=== PATIENT | male | born 1965 | race Caucasian/White ===

== ENCOUNTER 2018-03-29 06:14 | Inpatient (IN) ==
[2018-03-29] MEDS ORDERED: CeFAZolin Syr 3,000MG/30 ML 3,000 MG/30 ML SYRINGE IVPB ONE (06:29)
[2018-03-29] MEDS ORDERED: Chlorhexidine Rinse 15 ML MOUTHWASH MM ONE (06:32)
[2018-03-29] MEDS ORDERED: Aspirin 81 MG TAB.CHEW PO ONE (06:42)
[2018-03-29] MEDS ORDERED: Famotidine 20 MG/2 ML VIAL ONE (06:42)
[2018-03-29] MEDS ORDERED: *HR* PHENYLEPHRINE 1,000 MCG/10 ML SYRINGE IVP ONE (06:42)
[2018-03-29] MEDS ORDERED: *HR* Rocuronium Bromide 50 MG/5 ML VIAL ONE ×2 (06:42→11:13)
[2018-03-29] MEDS ORDERED: *HR* Etomidate 20 MG/10 ML AMPUL IVP ONE (06:42)
[2018-03-29] MEDS ORDERED: Protamine Sulfate 250 MG/25 ML VIAL IVP ONE (06:43)
[2018-03-29] MEDS ORDERED: Tranexamic Acid 1,000 MG/10 ML VIAL ONE ×2 (06:43→08:49)
[2018-03-29] MEDS ORDERED: Verapamil 5 MG/2 ML VIAL ONE (06:47)
[2018-03-29] MEDS ORDERED: *HR* Midazolam HCl 5 MG/5 ML VIAL IVP ONE ×2 (06:48→11:55)
[2018-03-29] MEDS ORDERED: *HR* FentaNYL (PF) 1,000 MCG/20 ML VIAL ONE (06:48)
[2018-03-29] MEDS ORDERED: NiCARdipine 2.5 MG/10 ML Syringe IVPB ONE (06:52)
[2018-03-29] MEDS ORDERED: Nitroglycerin 25 MG/250 ML INFUS..BTL IVC ONE ×2 (06:52→11:11)
--- NOTE | 2018-03-29 07:22 | Anesthesia Evaluation PreOp ---
Date of Encounter: 03/29/18 Time of Encounter: 07:20 - Past History Planned Operation: CABG Cardiac History: [place], CHF, HTN, Hyperlipidemia, Other (CAD) Pulmonary History: Former smoker (quit 7 yrs ago), CHRIS Dx (CPAP) CURB SETTER History: Denies Any Significant HX Other Medical History: Other (morbid obesity) Alcohol Use: rarely Drug use: none Medications and Allergies Albuterol Sulfate [Albuterol Inhaler] 2 puff IH BID PRN 03/21/18 [History] Aspirin [Lo-Dose Aspirin EC] 81 mg PO DAILY 03/21/18 [History] Atorvastatin Calcium 80 mg PO HS 03/21/18 [History] Carvedilol [Coreg] 6.25 mg PO BIDWM 03/21/18 [History] Cetirizine HCl [Zyrtec] 10 mg PO DAILY 03/21/18 [History] Diclofenac Sodium [Voltaren] 1 appl TP QID PRN 03/21/18 [History] Enalapril Maleate [Vasotec] 5 mg PO DAILY 03/21/18 [History] Fluticasone Propionate Nasal [Flonase] 50 mcg NS DAILY PRN 03/21/18 [History] Furosemide [Lasix] 40 mg PO DAILY 03/21/18 [History] Gabapentin [Neurontin] 200 mg PO BID 03/21/18 [History] Nitroglycerin [Nitrostat] 0.4 mg SL DAILY PRN 03/21/18 [History] Omeprazole [PriLOSEC] 20 mg PO DAILY PRN 03/21/18 [History] Terazosin HCl 2 mg PO HS 03/21/18 [History] hydrOXYzine HCl [Hydroxyzine HCl] 25 mg PO Q8H PRN 03/21/18 [History] Calcium Carbonate [Calcium] 500 mg PO DAILY 03/29/18 [History] Cholecalciferol (D-3) [Vitamin D] 1,000 unit PO DAILY 03/29/18 [History] Cyanocobalamin (Vitamin B-12) [Vitamin B-12] 1,000 mcg PO DAILY 03/29/18 [ History] 3 Allergy/AdvReac Type Severity Reaction Status Date / Time fluoxetine [From Prozac] AdvReac Headache Verified 03/29/18 07:07 - Meds/Allergy Pre-op Review Medications Reviewed: Yes Allergies Reviewed: Yes Beta Blockers on Current Med List: Yes Anesthesia Results - Labs Laboratory Tests 03/18/18 03/18/18 03/18/18 11:41 11:41 11:41 Hgb 15.4 Hct 45.1 Plt Count 170 PT 12.4 H INR 1.1 Sodium 140 Potassium 4.2 BUN 16 Creatinine 0.98 - Imaging Additional studies: cath: Impressions: There is severe three vessel coronary artery disease. stress test: Impression: Small sized, mild intensity stress perfusion defect involving the distal inferolateral wall representing mild reversible ischemia. Pharmacologic stress ECG is negative for ischemia at level of heart rate achieved. No appreciable change from baseline ECG. Gated EF = 66%. echo: Impressions: LVEF 60-65%. Not all LV segments were well visualized, but overall LVEF appeared normal. Mild left ventricular diastolic dysfunction. Grossly normal right ventricular structure and function. No evidence of pulmonary hypertension. No significant valvular dysfunction. Anesthesia Exam Selected Entries 03/29/18 06:31 Temperature 98.7 F Temperature Source Oral Pulse Rate 82 Respiratory Rate 18 Blood Pressure 120/78 O2 Sat by Pulse Oximetry 96 Weight: 124kg BMI 43 NPO (# of Hours): 8 - HEENT Pupil (Motor): EOMI Mallampati: III Teeth: Normal Oral Opening: Greater than 3 - CURB SETTER LOC: Oriented CURB SETTER Motor: Normal RUE, Normal LUE, Normal RLE, Normal LLE, Normal Face CURB SETTER Sensory: Normal: RUE, LUE, RLE, LLE, Face - Cardiac Rhythm: Regular Murmur: None - Pulmonary Breath Sounds: bilateral Clear Respiratory Effort: Symmetrical Anesthesia Assess/Plan ASA Score: 4 Modified Rosalino Scale for Level of Consciousness: Cooperative, oriented, and tranquil Anesthetic Plan: General Monitoring Plan: Standard Monitors, A-Line, PAC, JOSE Recovery Plan: ICU (agrees to GA, lines, JOSE and blood products.)
--- NOTE | 2018-03-29 07:36 | History & Physical Report ---
Date of Encounter: 03/29/18 Time of Encounter: 07:36 24 Hour HP Update - Instructions Instructions: If the History and Physical is less than 30 days old and was completed prior to A.M. admission and or procedure and has NOT been updated on calendar day of procedure please complete this update prior to performing procedure. - Update Patient reports changes in Medical Condition: No Changes in examination, assessment, or condition: No Changes in Medication: No Preop tests/diagnostics Reviewed: Yes Pre-Op MRSA Screen: Negative Surgery Remains Indicated: Yes Consent for Planned Operative Procedure(s) Verified: Yes - Pre-Operative Checklist Preoperative Checklist Indicated: Yes Prophylactic Antibiotic Ordered: Yes Home Medications Include Beta Mono: Yes Beta Mono Taken Today (Day of Surgery): Yes Beta Mono Taken Yesterday (Day Prior to Surgery): Yes Is VTE Prophylaxis Indicated?: Yes
[2018-03-29] MEDS ORDERED: Dextrose 50 % in Water (Vial) 30 ML, Sodium Bicarbonate 20 MEQ, Potassium Chloride 15 M... TH ONE (07:45)
[2018-03-29] MEDS ORDERED: Insulin Human Regular 100 UNIT in 0.9 % Sodium Chloride 100 ML IV PRN (07:45)
[2018-03-29] MEDS ORDERED: Norepinephrine 4 MG in D5% in Water 250 ML IVC PRN (07:45)
[2018-03-29] MEDS ORDERED: *HR* Magnesium Sulfate 2 GM/50 ML PIGGYBACK IVPB ONE (07:57)
[2018-03-29] MEDS ORDERED: Lidocaine 2% Syringe 100 MG/5 ML IV ONE (07:57)
[2018-03-29] MEDS ORDERED: Albumin Human 25% 25 GM/100 ML IV.SOLN IV ONE (07:57)
[2018-03-29] MEDS ORDERED: Sodium Bicarbonate 50 MEQ/50 ML VIAL IVC ONE (07:57)
[2018-03-29] MEDS ORDERED: *HR* Phenylephrine 10 MG/ML VIAL IVC ONE (07:57)
[2018-03-29] MEDS ORDERED: Mannitol 25% vial 12.5 GM/50 ML VIAL IVP ONE (07:57)
[2018-03-29] MEDS ORDERED: D5% in Water 250 ML IV BAG IV ONE (07:57)
[2018-03-29] MEDS ORDERED: *HR* Heparin 10,000 UNIT/10 ML VIAL IV ONE (07:57)
[2018-03-29] MEDS ORDERED: Tranexamic Acid 1,000 MG/10 ML VIAL IVPB ONE (07:57)
[2018-03-29 08:09] LABS: ABG Base Excess 0 mEq/L (-2 to 3); ABG Chloride 105 mEq/L (98-107); ABG Glucose 107 mg/dL (60-95); ABG HCO3 28 mEq/L (21-27); ABG Ionized Calcium 1.21 mmol/L (1.15-1.35); ABG Oxygen Saturation 100 % (95-98); ABG PCO2 58 mmHg (35-45); ABG PO2 344 mmHg (85-104); ABG TCO2 30 mEq/L (20-26)
--- NOTE | 2018-03-29 09:01 | Anesthesia Procedures ---
Date of Encounter: 03/29/18 Time of Encounter: 07:50 Procedures: Anesthesia - Arterial Line Consent obtained: written consent Time out performed: Yes Sedation: Versed (mg): 2 Sedation: Fentanyl (mcg): 100 Supplemental Oxygen via Nasal Cannula (L/min): 2 Local Anesthetic: Lidocaine 1% Amount of Anesthetic used (mls): 1 Size (Gauge): 20 Length (inches): 5 Technique Used: sterile prep, guide wire technique, direct puncture technique Post-Procedure: line taped into place, dry sterile dressing placed Patient tolerated procedure: well, no complications Complications: none Site: Radial R Comments: placed right radial due to possibility of needing left radial for graft donor - Central Line Placement Right IJ Consent obtained: written consent Time out performed: Yes Patient placed on monitor/pulse ox: Yes prep: mask, gown, gloves Central line prep: Chlorhexidine scrub Ultrasound used for placement: Yes Technique: Seldinger Lumen Inserted: Introducer Post procedure: sutured in place, good blood return, all ports aspirated, flushed, capped Patient tolerated procedure: well, no complications (introducer placed easily, swan placed without arrythmias, wedge approximately 55cm)
[2018-03-29 09:32] LABS: ABG Base Excess -3 mEq/L (-2 to 3); ABG Chloride 107 mEq/L (98-107); ABG Glucose 138 mg/dL (60-95); ABG HCO3 22 mEq/L (21-27); ABG Ionized Calcium 0.99 mmol/L (1.15-1.35); ABG Oxygen Saturation 99 % (95-98); ABG PCO2 36 mmHg (35-45); ABG PH 7.39 pH Units (7.32-7.45); ABG PO2 130 mmHg (85-104); ABG TCO2 23 mEq/L (20-26)
[2018-03-29 10:20] LABS: ABG Base Excess 1 mEq/L (-2 to 3); ABG Chloride 100 mEq/L (98-107); ABG Glucose 200 mg/dL (60-95); ABG HCO3 26 mEq/L (21-27); ABG Ionized Calcium 0.96 mmol/L (1.15-1.35); ABG Oxygen Saturation 100 % (95-98); ABG PCO2 40 mmHg (35-45); ABG PH 7.42 pH Units (7.32-7.45); ABG PO2 532 mmHg (85-104); ABG TCO2 27 mEq/L (20-26)
[2018-03-29 10:49] LABS: ABG Base Excess 3 mEq/L (-2 to 3); ABG Chloride 100 mEq/L (98-107); ABG Glucose 207 mg/dL (60-95); ABG HCO3 28 mEq/L (21-27); ABG Ionized Calcium 0.98 mmol/L (1.15-1.35); ABG Oxygen Saturation 100 % (95-98); ABG PCO2 39 mmHg (35-45); ABG PH 7.45 pH Units (7.32-7.45); ABG PO2 453 mmHg (85-104); ABG TCO2 29 mEq/L (20-26)
[2018-03-29] MEDS ORDERED: 0.9 % Sodium Chloride 4,000 ML ONE (11:10)
[2018-03-29 11:11] LABS: ABG Base Excess 3 mEq/L (-2 to 3); ABG Chloride 99 mEq/L (98-107); ABG Glucose 168 mg/dL (60-95); ABG HCO3 28 mEq/L (21-27); ABG Oxygen Saturation 100 % (95-98); ABG PCO2 43 mmHg (35-45); ABG PH 7.42 pH Units (7.32-7.45); ABG PO2 485 mmHg (85-104); ABG TCO2 29 mEq/L (20-26)
[2018-03-29 11:55] LABS: ABG Base Excess 1 mEq/L (-2 to 3); ABG Chloride 104 mEq/L (98-107); ABG Glucose 138 mg/dL (60-95); ABG HCO3 26 mEq/L (21-27); ABG Ionized Calcium 1.32 mmol/L (1.15-1.35); ABG Oxygen Saturation 100 % (95-98); ABG PCO2 40 mmHg (35-45); ABG PH 7.42 pH Units (7.32-7.45); ABG PO2 165 mmHg (85-104); ABG TCO2 27 mEq/L (20-26)
[2018-03-29] MEDS ORDERED: *HR* FentaNYL (PF) 250 MCG/5 ML VIAL ONE (11:55)
[2018-03-29] MEDS ORDERED: Insulin Regular, Human 100 UNIT/ML IV PRN (12:35)
[2018-03-29] MEDS ORDERED: *HR* Promethazine 25 MG/ML VIAL IVP PRN (12:35)
[2018-03-29] MEDS ORDERED: Potassium Chloride 40 MEQ/200 ML BAG IVPB PRN (12:35)
[2018-03-29] MEDS ORDERED: Acetaminophen 325 MG TABLET PO PRN (12:35)
[2018-03-29] MEDS ORDERED: Ondansetron 4 MG/2 ML VIAL IVP PRN (12:35)
[2018-03-29] MEDS ORDERED: *HR* Dextrose 50 % in Water (Syg) 50 ML SYRINGE IVP PRN (12:35)
[2018-03-29 13:11] LABS: Basophils % 0.3 %; Eosinophils # 0.2 K/mcL (0.0-0.6); Eosinophils % 1.5 %; Hematocrit 26.8 % (37.5-50.1); Hemoglobin 9.7 g/dL (12.9-16.9); Immature Granulocytes % 0.6 % (0-4); Immature Platelets 1.4 % (1.1-6.1); Lymphocytes # 1.3 K/mcL (0.6-4.6); Lymphocytes % 12.2 %; Mean Corpuscular HGB Conc 36.2 g/dL (31.6-35.5); Mean Corpuscular Hemoglobin 30.9 pg (28.0-33.3); Mean Corpuscular Volume 85.4 fL (83.0-100.0); Monocytes # 0.4 K/mcL (0.0-1.3); Monocytes % 4.2 %; Neutrophils # 8.4 K/mcL (1.6-8.9); Red Blood Count 3.14 M/mcL (4.19-5.50); Red Cell Distribution Width 12.6 % (11.5-14.5); Segmented Neutrophils % 81.2 %
[2018-03-29] MEDS: Heparin 15,000 UNIT in 0.9 % Sodium Chloride 500 ML IV SCH (13:13)
[2018-03-29] MEDS: Dextrose 50 % in Water (Vial) 30 ML, Sodium Bicarbonate 20 MEQ, Lidocaine 1% 5 ML, Insu... TH SCH (13:13)
[2018-03-29 13:14] LABS: INR 1.8; Prothrombin Time 19.8 Seconds (9.4-12.1)
[2018-03-29] MEDS: Norepinephrine 4 MG in D5% in Water 250 ML IVC SCH (13:14)
[2018-03-29] MEDS: niCARdipine 40 MG/200 ML MLS IVC SCH ×2 (13:14→20:03)
[2018-03-29] MEDS: Nitroglycerin 25 MG/250 ML INFUS..BTL IVC SCH ×2 (13:14→14:43)
[2018-03-29] MEDS: Insulin Human Regular 100 UNIT in 0.9 % Sodium Chloride 100 ML IVC SCH ×2 (13:14→21:12)
[2018-03-29 13:16] LABS: Activated Partial Thrombo Time 34.6 Seconds (26.0-36.0)
[2018-03-29] MEDS: 0.9 % Sodium Chloride w KCl 20 MEQ/1,000 ML MLS IVC SCH (13:17)
--- NOTE | 2018-03-29 13:18 | Operative Note ---
Date of procedure: 03/29/18 Was there an liaison inspection laboratory assistant present: Yes Senior [employer] Developer: Vijay Sanderson Estimated blood loss (cc): 750 Specimen: none Condition: stable Disposition: ICU Procedure in Detail: Preoperative diagnosis. Coronary artery disease. Postoperative diagnosis. Same. Procedures. Coronary artery bypass grafting 3 with the left internal mammary artery to the LAD and saphenous vein grafts to the posterior descending branch of the right coronary artery and obtuse marginal branch of the circumflex coronary artery. Surgeon. Dr. Earnest Armstrong. Patient is a 52-year -old gentleman who had cardiac catheterization which revealed severe triple- vessel disease. He was referred for surgery. He was brought to the operating room where he underwent a general anesthetic. He was prepped and draped in standard fashion. The right greater saphenous vein was harvested from the right ankle to the right groin. This was done through 2 small incisions using the scope. These incisions were subsequently closed using a deep layer of 0 Vicryl and a 2-0 Vicryl subcuticular stitch. A standard median sternotomy was performed. The left internal mammary artery retractor was inserted in the left internal mammary artery was harvested in standard fashion using the Bovie electrocoagulation. Following this, the mammary retractor was removed and the standard sternal rn hedis was inserted. Pericardium was opened in the midline and suspended with 2-0 silk stay sutures. Double purse string of 20 Surgilon was placed in the aorta for the aortic cannulation site. A pursestring of 20 Surgilon was placed in the right atrial appendage for the venous uptake. The patient was heparinized in the aorta was cannulated without difficulty. 2 stage venous uptake cannula was inserted through the right atrial appendage. Purse string of 3-0 silk was placed in the aorta and the cardioplegia needle was inserted through here. This was also used is an active and passive aortic vent. The patient was placed on cardiopulmonary bypass and cooled to 34.5 degrees. At this point the aorta was crossclamped and a liter of antegrade cardioplegia was given. Topical cooling with iced saline slush was also done. Attention was first turned to the right coronary artery. The posterior descending branch was dissected free with the Tanacross blade and opened with the Tanacross blade and the Pollard scissors. This had a lumen of 1-1/2 mm with moderate calcific plaquing. A standard end-to-side anastomosis was constructed using the saphenous vein and a 7-0 Prolene. When this is completed, the patient received an additional dose of antegrade cardioplegia. Attention was turned to the circumflex. The obtuse marginal branch was dissected free with the Tanacross blade and opened with a Tanacross blade and the Pollard scissors. This had a lumen of 1-1/2 mm with moderate calcific plaquing. A standard end-to- side anastomosis was constructed using the saphenous vein and a 7-0 Prolene. When this is completed, the patient received the last dose of antegrade cardioplegia. Mammary pedicle was harvested. Tonsil clamp was placed distally and was divided with the Metzenbaum scissors. Distal end was tied off with a 2- 0 silk suture. Proximal end was trimmed and brought into the wound. The LAD was dissected free with the Tanacross blade and opened with the Tanacross blade and the Pollard scissors. This had a lumen of 1-1/2 mm with moderate plaquing along all webster. A standard end-to-side anastomosis was constructed using the mammary artery and a 7-0 Prolene. When this was completed, the previously placed bulldog clamp was removed. Distal anastomoses were inspected and found to be hemostatic. The pedicle was tacked to the surface of the heart using 2 interrupted 5-0 silk sutures. Cross-clamp was removed and rewarming was begun. Total cross-clamp time was 48 minutes. A side-biting clamp was placed on the aorta and the cardioplegia needle was removed. 2 holes were made in the aorta using a Tanacross blade and the 4.0 mm aortic punch. 2 proximal anastomoses were constructed in standard fashion using the saphenous veins and 5-0 Prolene's. When this was completed, the side-biting clamp was removed. Grafts were de- aired using a #25-gauge needle and the previously placed bulldog clamps were removed. Distal anastomoses were inspected and found to be hemostatic. Proximal anastomoses were marked with the marker from a Ray-Rangel sponge. A pair of ventricular pacing wires was left. A total of 4 chest tubes were left. A 32 right chest tube to the left pleural space. A 32 right angle chest tube to the pericardial well. A 42 mediastinal chest tube. A 32 angle chest tube to the right pleural space. I did place FloSeal around the distal anastomoses. The patient was weaned from bypass and decannulated. Hemostasis was good and hemodynamics were good. Pericardium was left open. We did place platelet rich plasma on the sternum. We placed platelet poor plasma above the sternum. Sternum was closed with #7 sternal wires in simple and [id number] fashion. Fascia was run with no more and Vicryl. Subcutaneous tissues with a 2-0 Vicryl. Skin was closed with a 3-0 Vicryl subcuticular stitch. The patient tolerated procedure well and was returned to intensive care unit in satisfactory and stable condition. Total bypass time was 100 minutes. Total cross-clamp time was 48 minutes. He been cooled to 34.5 degrees.
[2018-03-29 13:19] LABS: ABG Base Excess 1 mEq/L (-2 to 3); ABG HCO3 26 mEq/L (21-27); ABG Oxygen Saturation 100 % (95-98); ABG PCO2 41 mmHg (35-45); ABG PO2 226 mmHg (85-104); ABG TCO2 27 mEq/L (20-26); Blood Gas Modality ASSIST CONTROL; Blood Gas Respiration Rate 12; Blood Gas VT 600 cc
[2018-03-29 13:24] LABS: BUN/Creatinine Ratio 14 (6-26); Blood Urea Nitrogen 13 mg/dL (6-20); Calcium 8.1 mg/dL (8.6-10.3); Carbon Dioxide 26 mEq/L (23-29); Chloride 110 mEq/L (98-107); Glucose 97 mg/dL (70-105); Magnesium 2.2 mg/dL (1.6-2.6); Osmolality,Calculated 288 (280-300); Potassium 3.5 mEq/L (3.5-5.1); Sodium 139 mEq/L (136-145); eGFR For African Americans > 60 (> 60); eGFR For Non-African Americans > 60 (> 60)
[2018-03-29 13:32] LABS: Platelet Count 90 K/mcL (140-400)
[2018-03-29] MEDS: *HR* FentaNYL (PF) 100 MCG/2 ML VIAL IVP PRN ×6 (13:32→23:31)
[2018-03-29 13:33] LABS: Platelet Estimate Decreased (Normal)
[2018-03-29 13:34] LABS: Toxic Granulation Present (Not Present)
[2018-03-29] MEDS: *HR* OxyCODONE/APAP 5/325 TABLET PO PRN ×2 (14:38→19:01)
[2018-03-29 17:00] LABS: ABG Base Excess 2 mEq/L (-2 to 3); ABG HCO3 25 mEq/L (21-27); ABG Oxygen Saturation 100 % (95-98); ABG PCO2 36 mmHg (35-45); ABG PH 7.46 pH Units (7.32-7.45); ABG PO2 219 mmHg (85-104); ABG TCO2 26 mEq/L (20-26); Blood Gas Modality ASSIST CONTROL; Blood Gas PEEP 5 cm H2O; Blood Gas Respiration Rate 12; Blood Gas VT 600 cc
[2018-03-29] MEDS ORDERED: *HR* Metoprolol 5 MG/5 ML VIAL IVP PRN (17:24)
[2018-03-29 18:16] LABS: ABG Base Excess -1 mEq/L (-2 to 3); ABG HCO3 27 mEq/L (21-27); ABG Oxygen Saturation 85 % (95-98); ABG PCO2 59 mmHg (35-45); ABG PH 7.26 pH Units (7.32-7.45); ABG PO2 58 mmHg (85-104); ABG TCO2 29 mEq/L (20-26); Blood Gas Modality CPAP/PS; Blood Gas Pressure Support 10 cm H2O
[2018-03-29] MEDS: CeFAZolin Syr 3,000MG/30 ML 3,000 MG/30 ML SYRINGE IVPB SCH (19:36)
[2018-03-29] MEDS: Chlorhexidine Rinse 15 ML MOUTHWASH MM SCH (20:03)
[2018-03-30] MEDS: *HR* FentaNYL (PF) 100 MCG/2 ML VIAL IVP PRN ×3 (03:20→10:50)
[2018-03-30] MEDS: 0.9 % Sodium Chloride w KCl 20 MEQ/1,000 ML MLS IVC SCH (03:23)
[2018-03-30] MEDS: CeFAZolin Syr 3,000MG/30 ML 3,000 MG/30 ML SYRINGE IVPB SCH (03:24)
[2018-03-30 04:35] LABS: Basophils % 0.3 %; Eosinophils % 0.2 %; Hematocrit 34.2 % (37.5-50.1); Immature Granulocytes % 0.4 % (0-4); Lymphocytes # 0.7 K/mcL (0.6-4.6); Lymphocytes % 6.2 %; Mean Corpuscular HGB Conc 34.5 g/dL (31.6-35.5); Mean Platelet Volume 9.1 fL (9.4-12.4); Monocytes # 1.1 K/mcL (0.0-1.3); Monocytes % 9.7 %; Neutrophils # 9.6 K/mcL (1.6-8.9); Platelet Count 134 K/mcL (140-400); Red Blood Count 3.93 M/mcL (4.19-5.50); Segmented Neutrophils % 83.2 %
[2018-03-30 04:41] LABS: Hemoglobin 11.8 g/dL (12.9-16.9)
[2018-03-30 04:50] LABS: BUN/Creatinine Ratio 14 (6-26); Blood Urea Nitrogen 17 mg/dL (6-20); Calcium 8.3 mg/dL (8.6-10.3); Carbon Dioxide 24 mEq/L (23-29); Chloride 106 mEq/L (98-107); Glucose 147 mg/dL (70-105); Magnesium 2.1 mg/dL (1.6-2.6); Osmolality,Calculated 286 (280-300); Potassium 4.6 mEq/L (3.5-5.1); Sodium 136 mEq/L (136-145); eGFR For African Americans > 60 (> 60); eGFR For Non-African Americans > 60 (> 60)
[2018-03-30 04:58] LABS: INR 1.4; Prothrombin Time 15.3 Seconds (9.4-12.1)
[2018-03-30] MEDS: *HR* OxyCODONE/APAP 5/325 TABLET PO PRN ×5 (04:59→23:41)
[2018-03-30 05:00] LABS: Activated Partial Thrombo Time 32.5 Seconds (26.0-36.0)
[2018-03-30] MEDS: niCARdipine 40 MG/200 ML MLS IVC SCH ×3 (05:08→20:20)
[2018-03-30] MEDS: Nitroglycerin 25 MG/250 ML INFUS..BTL IVC SCH ×4 (05:08→20:20)
[2018-03-30] MEDS: Heparin 15,000 UNIT in 0.9 % Sodium Chloride 500 ML IV SCH (05:08)
[2018-03-30] MEDS: Dextrose 50 % in Water (Vial) 30 ML, Sodium Bicarbonate 20 MEQ, Lidocaine 1% 5 ML, Insu... TH SCH (05:08)
--- NOTE | 2018-03-30 07:27 | Cardiothoracic Progress Note ---
Date of Encounter: 03/30/18 Time of Encounter: 07:24 - Assessment and plan (1) Coronary artery disease Current Visit: No Status: Acute The assessment and plan as outlined above was discussed with the patient and/or family members who expressed understanding and agreement. All questions were answered. We will leave the patient in the ICU today for pulmonary toilet and pain control. We will restart his home blood pressure medications. We will discontinue his IV fluids, [place] catheter and arterial line. We will start Toradol for pain control. Qualifiers: Coronary Disease-Associated Artery/Lesion type: [place] artery [place] vs. transplanted heart: [place] heart Associated angina: with unstable angina Qualified Code(s): I25.110 - Atherosclerotic heart disease of [place] coronary artery with unstable angina pectoris - Subjective Interval history: The patient is extubated and doing well. He complains of moderate postoperative pain. Vital Signs, Last 4 Hours Temp Pulse Resp BP Pulse Ox 03/30/18 06:00 98.3 F 101 16 135/68 97 03/30/18 05:00 98.9 F 101 16 137/70 96 03/30/18 04:00 98.9 F 101 16 120/63 96 03/30/18 03:43 21 131/70 98 03/30/18 03:29 104 Oxgyen Flow Rate Oxygen Flow Rate (LPM) 4 Clinical Data, last 8 Hours Output, Chest Tube Drainage 0 Amount [Chest tube 4] Output, Chest Tube Drainage 0 Amount [Chest tube 4] Output, Chest Tube Drainage 5 Amount [Chest tube 4] Output, Chest Tube Drainage 50 Amount [Chest tube 4] Output, Chest Tube Drainage 5 Amount [Chest tube 4] Output, Chest Tube Drainage 0 Amount [Chest tube 4] Output, Chest Tube Drainage 0 Amount [Chest tube 3] Output, Chest Tube Drainage 0 Amount [Chest tube 3] Output, Chest Tube Drainage 15 Amount [Chest tube 3] Output, Chest Tube Drainage 0 Amount [Chest tube 3] Output, Chest Tube Drainage 0 Amount [Chest tube 3] Output, Chest Tube Drainage 0 Amount [Chest tube 3] Output, Chest Tube Drainage 0 Amount [Chest tube 2] Output, Chest Tube Drainage 0 Amount [Chest tube 2] Output, Chest Tube Drainage 20 Amount [Chest tube 2] Output, Chest Tube Drainage 10 Amount [Chest tube 2] Output, Chest Tube Drainage 30 Amount [Chest tube 2] Output, Chest Tube Drainage 0 Amount [Chest tube 2] Output, Chest Tube Drainage 0 Amount [Chest tube 1] Output, Chest Tube Drainage 0 Amount [Chest tube 1] Output, Chest Tube Drainage 5 Amount [Chest tube 1] Output, Chest Tube Drainage 20 Amount [Chest tube 1] Output, Chest Tube Drainage 0 Amount [Chest tube 1] Output, Chest Tube Drainage 0 Amount [Chest tube 1] Weight 03/28/18 03/29/18 03/30/18 23:59 23:59 23:59 Weight 124.284 kg Lungs are clear to percussion and auscultation. Heart is in a normal sinus rhythm. All incisions are healing well without signs of infection and the sternum is stable. Chest tube drainage is minimal and there is no air leak. - Labs 03/30/18 04:20 03/30/18 04:20 Lab Results, Last 24 hours 03/29/18 03/29/18 03/29/18 12:53 12:53 12:53 WBC 10.3 Hgb 9.7 L Hct 26.8 L Plt Count 90 L INR 1.8 APTT 34.6 Sodium 139 Potassium 3.5 Chloride 110 H Carbon Dioxide 26 BUN 13 Creatinine 0.92 Glucose 97 Calcium 8.1 L Magnesium 2.2 03/29/18 03/30/18 03/30/18 16:37 04:20 04:20 WBC 11.6 H Hgb 11.8 L D Hct 34.2 L Plt Count 134 L INR 1.4 APTT 32.5 Sodium Potassium 4.4 D Chloride Carbon Dioxide BUN Creatinine Glucose Calcium Magnesium 03/30/18 04:20 WBC Hgb Hct Plt Count INR APTT Sodium 136 Potassium 4.6 Chloride 106 Carbon Dioxide 24 BUN 17 Creatinine 1.19 Glucose 147 H Calcium 8.3 L Magnesium 2.1 - VTE Documentation of Mechanical Device: Graduated compression elastic hosiery Consult Discharge Plan - Plan Referrals: Pepper Cespedes MD [Primary Care Provider] -
[2018-03-30] MEDS: Chlorhexidine Rinse 15 ML MOUTHWASH MM SCH ×2 (07:54→20:21)
[2018-03-30] MEDS: Aspirin 81 MG TAB.CHEW PO SCH (07:55)
[2018-03-30] MEDS: Furosemide 40 MG TABLET PO SCH (07:55)
[2018-03-30] MEDS: Norepinephrine 4 MG in D5% in Water 250 ML IVC SCH (11:46)
[2018-03-30] MEDS: Ketorolac 15 MG/ML VIAL IVP SCH ×3 (11:48→23:41)
[2018-03-30] MEDS ORDERED: Dextrose Gel 15 GM/37.5 ML TUBE PO PRN ×2 (12:11)
[2018-03-30] MEDS ORDERED: *HR* Dextrose 50 % in Water (Syg) 50 ML SYRINGE IVP PRN (12:11)
[2018-03-30] MEDS ORDERED: D5% in Water 1,000 ML IVC PRN (12:11)
--- NOTE | 2018-03-30 13:40 | Anesthesia Evaluation Post Op ---
Date of Encounter: 03/30/18 Time of Encounter: 13:20 - Vital Signs Vital Signs: Selected Entries 03/30/18 11:32 03/30/18 13:00 Temperature 97.6 F Pulse Rate 96 Respiratory Rate 16 Blood Pressure 91/58 O2 Sat by Pulse Oximetry 98 Oxygen Flow Rate (LPM) 4 Oxygen Delivery Method Nasal Cannula - Lungs Lungs: Clear Ascult./Percussion - Airway Airway: Non-obstructed - Cardiovascular Regular Rate - Mental Status Mental Status: Alert & Oriented, Answers Appropriately - Pain Pain Scale: 3 Pain Scale used: Numeric (1 - 10) - Nausea Vomiting Nausea Vomiting: Not Present - Hydration Hydration: Tolerates oral liquids, Siu catheter Notes: 03/30/18 13:39 no apparent anesthesia complications. Disposition per CT surgery
--- NOTE | 2018-03-30 14:50 | Electrocardiograph Report ---
[address] [address] Test Date: 2018-03-29 Pat Name: Tommy Hernandez Department: 109 Room: [facility] Gender: Experiential Therapist: : [id number] Requested By: Earnest Armstrong Order Number: [id number] Reading MD: Deyanira Oakley Measurements Intervals [place] Rate: 89 P: 12 OK: 153 QRS: 11 QRSD: 144 T: 7 QT: 422 QTc: 468 Interpretive Statements SINUS RHYTHM RIGHT BUNDLE BRANCH BLOCK Electronically Signed On 03-30-2018 14:49:19 EDT by Deyanira Oakley
[2018-03-30] MEDS: Insulin LISPRO 300 UNITS/3 ML VIAL SQ SCH (16:55)
[2018-03-30] MEDS: *HR* Heparin 5,000 UNIT/ML VIAL SQ SCH (18:06)
[2018-03-30] MEDS ORDERED: Insulin LISPRO 300 UNITS/3 ML VIAL SQ SCH (21:00)
[2018-03-31] MEDS: *HR* OxyCODONE/APAP 5/325 TABLET PO PRN ×4 (04:22→20:59)
[2018-03-31] MEDS: *HR* Heparin 5,000 UNIT/ML VIAL SQ SCH ×3 (05:23→18:25)
[2018-03-31] MEDS: Ketorolac 15 MG/ML VIAL IVP SCH ×3 (05:23→18:23)
[2018-03-31] MEDS: Nitroglycerin 25 MG/250 ML INFUS..BTL IVC SCH (05:24)
[2018-03-31] MEDS: niCARdipine 40 MG/200 ML MLS IVC SCH (05:24)
[2018-03-31 05:51] LABS: Basophils % 0.3 %; Eosinophils # 0.1 K/mcL (0.0-0.6); Eosinophils % 1.1 %; Hematocrit 28.7 % (37.5-50.1); Hemoglobin 9.7 g/dL (12.9-16.9); Immature Granulocytes % 0.6 % (0-4); Lymphocytes # 0.8 K/mcL (0.6-4.6); Lymphocytes % 6.4 %; Mean Corpuscular HGB Conc 33.8 g/dL (31.6-35.5); Mean Corpuscular Hemoglobin 28.9 pg (28.0-33.3); Mean Corpuscular Volume 85.4 fL (83.0-100.0); Mean Platelet Volume 9.3 fL (9.4-12.4); Monocytes % 8.2 %; Neutrophils # 10.1 K/mcL (1.6-8.9); Platelet Count 116 K/mcL (140-400); Red Blood Count 3.36 M/mcL (4.19-5.50); Red Cell Distribution Width 13.1 % (11.5-14.5); Segmented Neutrophils % 83.4 %
[2018-03-31 05:59] LABS: BUN/Creatinine Ratio 20 (6-26); Blood Urea Nitrogen 19 mg/dL (6-20); Calcium 8.2 mg/dL (8.6-10.3); Carbon Dioxide 25 mEq/L (23-29); Chloride 99 mEq/L (98-107); Glucose 111 mg/dL (70-105); Osmolality,Calculated 273 (280-300); Sodium 130 mEq/L (136-145); eGFR For African Americans > 60 (> 60); eGFR For Non-African Americans > 60 (> 60)
--- NOTE | 2018-03-31 07:40 | Cardiothoracic Progress Note ---
Date of Encounter: 03/31/18 Time of Encounter: 07:38 - Assessment and plan (1) Coronary artery disease Current Visit: No Status: Acute The patient is recovering well from his CABG3. His chest tubes and Siu catheter were removed. He will be transferred to the stepdown unit when a bed is available. The assessment and plan as outlined above was discussed with the patient and/or family members who expressed understanding and agreement. All questions were answered. Qualifiers: Coronary Disease-Associated Artery/Lesion type: [place] artery [place] vs. transplanted heart: [place] heart Associated angina: with unstable angina Qualified Code(s): I25.110 - Atherosclerotic heart disease of [place] coronary artery with unstable angina pectoris - Subjective Procedure(s) Performed: POD#2 S/P CABG3 Interval history: The patient remained hemodynamically stable overnight. He is sitting in a chair at the bedside and breathing comfortably. He has no complaints. Vital Signs, Last 4 Hours Temp Pulse Resp BP Pulse Ox 03/31/18 07:36 98.8 F 03/31/18 06:00 90 18 108/63 99 03/31/18 05:00 91 18 117/62 99 03/31/18 04:25 92 03/31/18 04:00 99.7 F H 92 16 104/57 99 03/31/18 03:46 20 99 Oxgyen Flow Rate Oxygen Flow Rate (LPM) 4 Clinical Data, last 8 Hours Output, Chest Tube Drainage 10 Amount [Chest tube 4] Output, Chest Tube Drainage 2 Amount [Chest tube 4] Output, Chest Tube Drainage 25 Amount [Chest tube 3] Output, Chest Tube Drainage 15 Amount [Chest tube 3] Output, Chest Tube Drainage 20 Amount [Chest tube 2] Output, Chest Tube Drainage 6 Amount [Chest tube 1] Output, Chest Tube Drainage 2 Amount [Chest tube 1] Weight 03/29/18 03/30/18 03/31/18 23:59 23:59 23:59 Weight 124.284 kg - Physical Examination General: Conversant, No Apparent Distress Neck: No JVD, Normal carotid pulses Cardiac: Reg Rate and Rhythm, Normal S1 and S2, No Murmur Incision: No signs of infection, Dry/intact dressing Sternum: Stable Chest tubes: Minimal drainage, Other (No air leak) Pacing Wires: In place Lungs: Normal Breath Sounds, No Wheeze, Rales, Rhonchi Neuro: Alert and responsive, No focal deficits noted Vascular: Normal capillary refill Extremities: No Clubbing, No Cyanosis, No Edema - Labs 03/31/18 05:30 03/31/18 05:30 Lab Results, Last 24 hours 03/31/18 03/31/18 05:30 05:30 WBC 12.1 H Hgb 9.7 L D Hct 28.7 L Plt Count 116 L Sodium 130 L Potassium 4.0 Chloride 99 Carbon Dioxide 25 BUN 19 Creatinine 0.96 Glucose 111 H Calcium 8.2 L - VTE Documentation of Mechanical Device: Graduated compression elastic hosiery Consult Discharge Plan - Plan Referrals: Pepper Cespedes MD [Primary Care Provider] -
[2018-03-31] MEDS: Chlorhexidine Rinse 15 ML MOUTHWASH MM SCH ×2 (07:59→20:10)
[2018-03-31] MEDS: Furosemide 40 MG TABLET PO SCH (08:00)
[2018-03-31] MEDS: Aspirin 81 MG TAB.CHEW PO SCH (08:00)
[2018-03-31] MEDS: Insulin LISPRO 300 UNITS/3 ML VIAL SQ SCH ×4 (08:00→20:16)
[2018-03-31] MEDS ORDERED: hydrOXYzine pamoate 25 MG CAPSULE PO PRN (09:24)
[2018-03-31] MEDS ORDERED: *HR* Promethazine 25 MG/ML VIAL IVP PRN (09:24)
[2018-03-31] MEDS ORDERED: Acetaminophen 325 MG TABLET PO PRN (09:24)
[2018-03-31] MEDS ORDERED: *HR* Dextrose 50 % in Water (Syg) 50 ML SYRINGE IVP PRN (09:24)
[2018-03-31] MEDS ORDERED: Dextrose Gel 15 GM/37.5 ML TUBE PO PRN ×2 (09:24)
[2018-03-31] MEDS ORDERED: Nitroglycerin 0.4 MG TAB.SUBL SL PRN (09:24)
[2018-03-31] MEDS ORDERED: Fluticasone Propionate Nasal 50 MCG/SPRAY BOTTLE NS PRN (09:24)
[2018-03-31] MEDS ORDERED: Ondansetron 4 MG/2 ML VIAL IVP PRN (09:24)
[2018-03-31] MEDS ORDERED: D5% in Water 1,000 ML IVC PRN (09:24)
[2018-03-31] MEDS: Cyanocobalamin (B-12) 1,000 MCG TABLET PO SCH (10:38)
[2018-03-31] MEDS: Cholecalciferol (D-3) 1,000 UNIT TABLET PO SCH (10:38)
[2018-03-31] MEDS: Loratadine 10 MG TABLET PO SCH (10:38)
[2018-03-31] MEDS: Gabapentin 100 MG CAPSULE PO SCH ×2 (10:41→20:10)
[2018-03-31] MEDS ORDERED: *HR* Heparin 5,000 UNIT/ML VIAL SQ SCH (18:00)
[2018-04-01] MEDS: Ketorolac 15 MG/ML VIAL IVP SCH ×5 (00:18→23:57)
[2018-04-01] MEDS: *HR* OxyCODONE/APAP 5/325 TABLET PO PRN ×4 (02:17→18:29)
[2018-04-01] MEDS: *HR* Heparin 5,000 UNIT/ML VIAL SQ SCH ×2 (05:15→16:32)
[2018-04-01] MEDS: Chlorhexidine Rinse 15 ML MOUTHWASH MM SCH ×2 (07:58→20:38)
[2018-04-01] MEDS: Gabapentin 100 MG CAPSULE PO SCH ×2 (07:58→20:37)
[2018-04-01] MEDS: Aspirin 81 MG TAB.CHEW PO SCH (07:58)
[2018-04-01] MEDS: Loratadine 10 MG TABLET PO SCH (07:58)
[2018-04-01] MEDS: Cholecalciferol (D-3) 1,000 UNIT TABLET PO SCH (07:59)
[2018-04-01] MEDS: Furosemide 40 MG TABLET PO SCH (07:59)
[2018-04-01] MEDS: Cyanocobalamin (B-12) 1,000 MCG TABLET PO SCH (07:59)
[2018-04-01] MEDS: Insulin LISPRO 300 UNITS/3 ML VIAL SQ SCH ×4 (08:02→20:38)
--- NOTE | 2018-04-01 08:16 | Cardiothoracic Progress Note ---
Date of Encounter: 04/01/18 Time of Encounter: 08:15 - Assessment and plan (1) Coronary artery disease Current Visit: No Status: Acute The patient is recovering well from his CABG3. He will be transferred to the stepdown unit when a bed is available. The assessment and plan as outlined above was discussed with the patient and/or family members who expressed understanding and agreement. All questions were answered. Qualifiers: Coronary Disease-Associated Artery/Lesion type: [place] artery [place] vs. transplanted heart: [place] heart Associated angina: with unstable angina Qualified Code(s): I25.110 - Atherosclerotic heart disease of [place] coronary artery with unstable angina pectoris - Subjective Procedure(s) Performed: POD#3 S/P CABG3 Interval history: The patient remained hemodynamically stable overnight. He is sitting in a chair at the bedside eating breakfast. He is breathing comfortably. He has no complaints. Vital Signs, Last 4 Hours Temp Pulse Resp BP Pulse Ox 04/01/18 07:39 16 97 04/01/18 05:18 101 16 119/92 97 04/01/18 05:05 98.0 F Oxgyen Flow Rate Oxygen Flow Rate (LPM) 2 Clinical Data, last 8 Hours Output, Urine Amount 125 Weight 03/30/18 03/31/18 04/01/18 23:59 23:59 23:59 Weight 130.7 kg - Physical Examination General: Conversant, No Apparent Distress Neck: No JVD, Normal carotid pulses Cardiac: Reg Rate and Rhythm, Normal S1 and S2, No Murmur Incision: No signs of infection, Dry/intact dressing Sternum: Stable Pacing Wires: In place Lungs: Normal Breath Sounds, No Wheeze, Rales, Rhonchi Neuro: Alert and responsive, No focal deficits noted Vascular: Normal capillary refill Extremities: No Clubbing, No Cyanosis, No Edema - Labs 03/31/18 05:30 03/31/18 05:30 - VTE Documentation of Mechanical Device: Graduated compression elastic hosiery Consult Discharge Plan - Plan Referrals: Pepper Cespedes MD [Primary Care Provider] -
[2018-04-01] MEDS ORDERED: *HR* FentaNYL (PF) 100 MCG/2 ML VIAL IVP PRN (08:33)
[2018-04-02] MEDS: *HR* OxyCODONE/APAP 5/325 TABLET PO PRN ×4 (00:58→20:16)
[2018-04-02] MEDS: Ketorolac 15 MG/ML VIAL IVP SCH ×4 (06:05→23:57)
[2018-04-02] MEDS: *HR* Heparin 5,000 UNIT/ML VIAL SQ SCH ×2 (06:07→17:37)
[2018-04-02] MEDS: Insulin LISPRO 300 UNITS/3 ML VIAL SQ SCH ×4 (08:03→23:27)
[2018-04-02] MEDS: Cholecalciferol (D-3) 1,000 UNIT TABLET PO SCH (08:11)
[2018-04-02] MEDS: Chlorhexidine Rinse 15 ML MOUTHWASH MM SCH ×2 (08:11→20:16)
[2018-04-02] MEDS: Loratadine 10 MG TABLET PO SCH (08:11)
[2018-04-02] MEDS: Aspirin 81 MG TAB.CHEW PO SCH (08:11)
[2018-04-02] MEDS: Cyanocobalamin (B-12) 1,000 MCG TABLET PO SCH (08:11)
[2018-04-02] MEDS: Gabapentin 100 MG CAPSULE PO SCH ×2 (08:12→20:15)
[2018-04-02] MEDS: Furosemide 40 MG TABLET PO SCH (08:12)
--- NOTE | 2018-04-02 08:57 | Urology - Consult Note ---
Date of Encounter: 04/02/18 Time of Encounter: 08:54 - Assessment and Plan (1) Urinary retention Current Visit: Yes Status: Acute Assessment and plan: 52-year-old man with a history of acute urinary retention. I recommend continuing his indwelling catheter for now. I would advise that he return to the urology clinic as an outpatient for a voiding trial. I will discontinue his Hytrin and start him on tamsulosin instead. He should continue with tamsulosin upon discharge. I answered all his questions regarding the catheter. We discussed options if he is not able to adequately urinate upon his voiding trial in our office. We briefly discussed surgical procedures and office-based procedures for BPH. I answered all his questions. Please contact me if there are further issues. Urology CN:HPI Consult date: 04/02/18 Reason for consult Urology: Other (urinary retention) Requesting physician: Simran Carranza History of present illness: 52-year-old man is seen in consultation for acute urinary retention. He has recently had a cardiac bypass. Attempts were made at removing his catheter, but he has not been able to void on his own. Currently he has an indwelling catheter in place. Prior to surgery he reports having slowing of his stream. He has sensations of incomplete emptying and increased urinary frequency. He reports having to strain to empty his bladder. He was given Hytrin at 2 mg daily. This has not significantly improved his urinary symptoms. He denies any known family history of prostate cancer. Past Med Surg Social Fam HX - Past Medical History Medical history: CHF, coronary artery disease, hyperlipidemia, hypertension, myocardial infarction Additional medical history: SLEEP APNEA. VENOUS STASIS. EDEMA Psychiatric history: no psych history - Past Surgical History Surgical History: other Additional surgical history: HEART CATH. APPENDECTOMY. THROAT ABSCESS REMOAL. WRIST CYST. TOENAIL REMOVED - Social History Smoking Status: Former smoker Smokeless Tobacco Status: No Alcohol use: rarely Drug use: none Medications and Allergies Albuterol Sulfate [Albuterol Inhaler] 2 puff IH BID PRN 03/21/18 [History] Aspirin [Lo-Dose Aspirin EC] 81 mg PO DAILY 03/21/18 [History] Atorvastatin Calcium 80 mg PO HS 03/21/18 [History] Carvedilol [Coreg] 6.25 mg PO BIDWM 03/21/18 [History] Cetirizine HCl [Zyrtec] 10 mg PO DAILY 03/21/18 [History] Diclofenac Sodium [Voltaren] 1 appl TP QID PRN 03/21/18 [History] Enalapril Maleate [Vasotec] 5 mg PO DAILY 03/21/18 [History] Fluticasone Propionate Nasal [Flonase] 50 mcg NS DAILY PRN 03/21/18 [History] Furosemide [Lasix] 40 mg PO DAILY 03/21/18 [History] Gabapentin [Neurontin] 200 mg PO BID 03/21/18 [History] Nitroglycerin [Nitrostat] 0.4 mg SL DAILY PRN 03/21/18 [History] Omeprazole [PriLOSEC] 20 mg PO DAILY PRN 03/21/18 [History] Terazosin HCl 2 mg PO HS 03/21/18 [History] hydrOXYzine HCl [Hydroxyzine HCl] 25 mg PO Q8H PRN 03/21/18 [History] Calcium Carbonate [Calcium] 500 mg PO DAILY 03/29/18 [History] Cholecalciferol (D-3) [Vitamin D] 1,000 unit PO DAILY 03/29/18 [History] Cyanocobalamin (Vitamin B-12) [Vitamin B-12] 1,000 mcg PO DAILY 03/29/18 [ History] 3 Allergy/AdvReac Type Severity Reaction Status Date / Time fluoxetine [From Prozac] AdvReac Headache Verified 03/29/18 07:07 Review of Systems - Constitutional no chills, no fever(s) - EENT Nose, mouth and throat: no dizziness - Cardiovascular no chest pain - Respiratory no dyspnea - Gastrointestinal no nausea, no vomiting - Genitourinary no flank pain, no hematuria - Musculoskeletal no back pain - Integumentary no erythema, no rash - Neurological no weakness - Psychiatric no suicidal ideation - Hematologic/Lymphatic no easy bleeding - Allergic/Immunologic no wheezing Exam Initial Vital Signs Temp Pulse Resp BP Pulse Ox 98.7 F 82 18 120/78 96 03/29/18 06:31 03/29/18 06:31 03/29/18 06:31 03/29/18 06:31 03/29/18 06:31 - General physical appearance Present: well developed, well nourished, no distress - Eyes Absent: icteric - ENT Present: normal nares - Neck Present: trachea midline - Respiratory Present: normal respiratory effort - Cardiovascular Cardiovascular exam IM: RRR - Abdomen Abdomen: Present: soft - Integumentary Present: no rash - Neurologic Present: normal coordination - Musculoskeletal Present: other (grossly normal) Urology Results - Labs 03/31/18 05:30 03/31/18 05:30 Abnormal lab results WBC 12.1 K/mcL (4.3-11.1) H 03/31/18 05:30 RBC 3.36 M/mcL (4.19-5.50) L 03/31/18 05:30 Hgb 9.7 g/dL (12.9-16.9) L D 03/31/18 05:30 Hct 28.7 % (37.5-50.1) L 03/31/18 05:30 Plt Count 116 K/mcL (140-400) L 03/31/18 05:30 MPV 9.3 fL (9.4-12.4) L 03/31/18 05:30 Neutrophils # 10.1 K/mcL (1.6-8.9) H 03/31/18 05:30 Toxic Granulation Present (Not Present) A 03/29/18 12:53 Platelet Estimate Decreased (Normal) L 03/29/18 12:53 PT 15.3 Seconds (9.4-12.1) H 03/30/18 04:20 ABG pH 7.26 pH Units (7.32-7.45) L D 03/29/18 17:58 ABG pCO2 59 mmHg (35-45) H D 03/29/18 17:58 ABG pO2 58 mmHg (85-104) L D 03/29/18 17:58 ABG Total CO2 29 mEq/L (20-26) H 03/29/18 17:58 ABG O2 Saturation 85 % (95-98) L 03/29/18 17:58 ABG Hematocrit 26.0 % (37.5-50.1) L 03/29/18 11:50 Glucose 138 mg/dL (60-95) H 03/29/18 11:50 Sodium 130 mEq/L (136-145) L 03/31/18 05:30 Glucose 111 mg/dL (70-105) H 03/31/18 05:30 POC Glucose 116 mg/dL (70-99) H 04/02/18 07:13 Calculated Osmolality 273 (280-300) L 03/31/18 05:30 Calcium 8.2 mg/dL (8.6-10.3) L 03/31/18 05:30 All other labs normal. Consult Discharge Plan - Plan Referrals: Pepper Cespedes MD [Primary Care Provider] -
--- NOTE | 2018-04-02 11:41 | Cardiothoracic Progress Note ---
Date of Encounter: 04/02/18 Time of Encounter: 11:34 - Subjective Procedure(s) Performed: The patient was seen and examined. In summary Mr. Tommy Hernandez is a 52-year- old obese white male who is postop day #4 from a CABG [address] Armstrong (03/29/2018). He reportedly had an uneventful postoperative course. He notably had his Siu catheter removed on postop day #2 and had urinary retention and therefore his Siu was replaced. He has been seen by urology and the current plan is to leave the Siu in place. He was started on Flomax by report. He has not had a bowel movement. His cough is somewhat marginal his primary complaint is chest pain with cough. He has had no arrhythmias by report and his chest tubes and pacing wires are out. He is waiting for a bed on the floor to be transferred out of the unit. We discussed instituting a suppository to facilitate a bowel movement and discussed importance of coughing , deep breathing, pulmonary toilet and increasing activity as tolerated. Vital Signs, Last 4 Hours Pulse Resp Pulse Ox 04/02/18 08:27 16 98 04/02/18 08:00 105 Oxgyen Flow Rate Oxygen Flow Rate (LPM) 2 Weight 03/31/18 04/01/18 04/02/18 23:59 23:59 23:59 Weight 126.7 kg - Physical Examination General: Other (Well-developed, obese white male sitting in chair, somewhat lethargic in appearance but cooperative, no acute distress) Incision: Other (Sternal wound dressing in place, clean dry and intact) Sternum: Other (No evidence of sternal instability or crepitus with cough) Chest tubes: Other (Chest tubes out) Pacing Wires: Other (Pacing wires) - Labs 03/31/18 05:30 03/31/18 05:30 - VTE Documentation of Mechanical Device: Graduated compression elastic hosiery Consult Discharge Plan - Plan Referrals: Pepper Cespedes MD [Primary Care Provider] -
[2018-04-02] MEDS: Bisacodyl 10 MG RECTAL SUPPOSITORY RC SCH (13:11)
[2018-04-03] MEDS: Ketorolac 15 MG/ML VIAL IVP SCH ×4 (06:16→23:38)
[2018-04-03] MEDS: *HR* Heparin 5,000 UNIT/ML VIAL SQ SCH ×2 (06:16→16:58)
[2018-04-03] MEDS: Insulin LISPRO 300 UNITS/3 ML VIAL SQ SCH ×4 (07:34→20:06)
[2018-04-03] MEDS: Furosemide 40 MG TABLET PO SCH (07:34)
[2018-04-03] MEDS: Gabapentin 100 MG CAPSULE PO SCH ×2 (07:34→20:04)
[2018-04-03] MEDS: Chlorhexidine Rinse 15 ML MOUTHWASH MM SCH ×2 (07:34→20:04)
[2018-04-03] MEDS: Cyanocobalamin (B-12) 1,000 MCG TABLET PO SCH (07:34)
[2018-04-03] MEDS: Aspirin 81 MG TAB.CHEW PO SCH (07:34)
[2018-04-03] MEDS: Cholecalciferol (D-3) 1,000 UNIT TABLET PO SCH (07:34)
[2018-04-03] MEDS: *HR* OxyCODONE/APAP 5/325 TABLET PO PRN ×4 (07:34→21:10)
[2018-04-03] MEDS: Loratadine 10 MG TABLET PO SCH (07:36)
[2018-04-03] MEDS: Bisacodyl 10 MG RECTAL SUPPOSITORY RC SCH (07:37)
--- NOTE | 2018-04-03 13:05 | Cardiothoracic Progress Note ---
Date of Encounter: 04/03/18 Time of Encounter: 13:03 - Subjective Procedure(s) Performed: The patient was seen and examined. In summary Mr. Tommy Hernandez is a 52-year- old obese white male who is postop day #5 from a CABG [address] Armstrong (03/29/2018). He reportedly had an uneventful postoperative course. He notably had his Siu catheter removed on postop day #2 and had urinary retention and therefore his Siu was replaced. He has been seen by urology and the current plan is to leave the Siu in place. He was started on Flomax by report. The patient was transferred to the floor yesterday. The patient reports he had an uneventful night and his bowels are now marking. His cough is somewhat marginal his primary complaint is chest pain with cough. He has had no arrhythmias by report and his chest tubes and pacing wires are out. We again discussed importance of coughing, deep breathing, pulmonary toilet and increasing activity as tolerated. The patient expressed interest in having his Siu removed and its attempting to urinate. I recommended he discuss this with urology is not ready yet this morning. Otherwise we discussed considerations for possible discharge home in the next 24 -48 hours versus transferred to an ECF which I recommended he discuss with social media coordinator. Vital Signs, Last 4 Hours Temp Pulse Resp BP Pulse Ox 04/03/18 11:10 87 04/03/18 11:05 18 96 04/03/18 10:58 98.5 F 79 18 111/69 96 Oxgyen Flow Rate Oxygen Flow Rate (LPM) 0 Weight 04/01/18 04/02/18 04/03/18 23:59 23:59 23:59 Weight 126.7 kg 127 kg - Physical Examination General: Other (Sitting up in bed eating lunch) Neck: Other (Right IJ in place) Sternum: Other (Sternum stable with dressing intact) Lungs: Other (Improved cough but still somewhat marginal pulmonary toilet) - Labs 03/31/18 05:30 03/31/18 05:30 - VTE Documentation of Mechanical Device: Graduated compression elastic hosiery Consult Discharge Plan - Plan Referrals: Pepper Cespedes MD [Primary Care Provider] -
[2018-04-04] MEDS: *HR* OxyCODONE/APAP 5/325 TABLET PO PRN ×5 (01:40→22:31)
[2018-04-04] MEDS: *HR* Heparin 5,000 UNIT/ML VIAL SQ SCH ×2 (05:20→16:54)
[2018-04-04] MEDS: Ketorolac 15 MG/ML VIAL IVP SCH ×2 (05:20→11:04)
[2018-04-04] MEDS: Aspirin 81 MG TAB.CHEW PO SCH (07:36)
[2018-04-04] MEDS: Furosemide 40 MG TABLET PO SCH (07:36)
[2018-04-04] MEDS: Cyanocobalamin (B-12) 1,000 MCG TABLET PO SCH (07:36)
[2018-04-04] MEDS: Loratadine 10 MG TABLET PO SCH (07:37)
[2018-04-04] MEDS: Gabapentin 100 MG CAPSULE PO SCH ×2 (07:37→20:15)
[2018-04-04] MEDS: Cholecalciferol (D-3) 1,000 UNIT TABLET PO SCH (07:37)
[2018-04-04] MEDS: Chlorhexidine Rinse 15 ML MOUTHWASH MM SCH ×2 (07:37→20:15)
[2018-04-04] MEDS: Bisacodyl 10 MG RECTAL SUPPOSITORY RC SCH (07:38)
[2018-04-04] MEDS: Insulin LISPRO 300 UNITS/3 ML VIAL SQ SCH ×4 (07:38→20:15)
--- NOTE | 2018-04-04 09:11 | Cardiothoracic Progress Note ---
Date of Encounter: 04/04/18 Time of Encounter: 09:09 - Assessment and plan (1) Coronary artery disease Current Visit: No Status: Acute The patient is recovering well from his CABG3. He began ambulating in the hallways, though he is limited due to his peripheral neuropathy. He will be evaluated for possible inpatient rehabilitation as a bridge to home. The assessment and plan as outlined above was discussed with the patient and/or family members who expressed understanding and agreement. All questions were answered. Qualifiers: Coronary Disease-Associated Artery/Lesion type: [place] artery [place] vs. transplanted heart: [place] heart Associated angina: with unstable angina Qualified Code(s): I25.110 - Atherosclerotic heart disease of [place] coronary artery with unstable angina pectoris - Subjective Procedure(s) Performed: POD#6 S/P CABG3 Interval history: The patient remained hemodynamically stable overnight. He is sitting in a chair at the bedside. He is breathing comfortably. He has begun ambulating in the hallways, though he has difficulty walking long distances due to his peripheral neuropathy. He has no complaints. Vital Signs, Last 4 Hours Temp Pulse Resp BP Pulse Ox 04/04/18 08:12 16 94 04/04/18 07:32 98.6 F 96 18 124/80 94 04/04/18 07:00 95 Oxgyen Flow Rate Oxygen Flow Rate (LPM) 0 Weight 04/02/18 04/03/18 04/04/18 23:59 23:59 23:59 Weight 127 kg 125.4 kg - Physical Examination General: Conversant, No Apparent Distress Neck: No JVD, Normal carotid pulses Cardiac: Reg Rate and Rhythm, Normal S1 and S2, No Murmur Incision: No signs of infection, Dry/intact dressing Sternum: Stable Pacing Wires: In place Lungs: Normal Breath Sounds, No Wheeze, Rales, Rhonchi Neuro: Alert and responsive, No focal deficits noted Vascular: Normal capillary refill Extremities: No Clubbing, No Cyanosis, No Edema - Labs 03/31/18 05:30 03/31/18 05:30 - VTE Documentation of Mechanical Device: Graduated compression elastic hosiery Consult Discharge Plan - Plan Referrals: Pepper Cespedes MD [Primary Care Provider] -
[2018-04-05] MEDS: *HR* OxyCODONE/APAP 5/325 TABLET PO PRN ×5 (03:56→20:27)
[2018-04-05] MEDS: *HR* Heparin 5,000 UNIT/ML VIAL SQ SCH ×2 (06:25→16:18)
--- NOTE | 2018-04-05 07:43 | Cardiothoracic Progress Note ---
Date of Encounter: 04/05/18 Time of Encounter: 07:41 - Assessment and plan (1) Coronary artery disease Current Visit: No Status: Acute We will plan to discharge the patient tomorrow. He is unsure whether he wants to go to an extended care facility or home with a visiting nurse. He will be discharged with a Siu catheter, which will be removed in the urology offices in the next week or 2. Qualifiers: Coronary Disease-Associated Artery/Lesion type: [place] artery [place] vs. transplanted heart: [place] heart Associated angina: with unstable angina Qualified Code(s): I25.110 - Atherosclerotic heart disease of [place] coronary artery with unstable angina pectoris - Subjective Interval history: The patient complains of mild postoperative pain. Vital Signs, Last 4 Hours Temp Pulse Resp BP Pulse Ox 04/05/18 06:55 98.7 F 89 18 110/68 95 04/05/18 04:11 18 93 04/05/18 03:58 98.5 F 105 24 100/84 95 Oxgyen Flow Rate Oxygen Flow Rate (LPM) 0 Weight 04/03/18 04/04/18 04/05/18 23:59 23:59 23:59 Weight 127 kg 125.4 kg 125.5 kg Lungs are clear to percussion and auscultation. Heart is in a normal sinus rhythm. All incisions are healing well without signs of infection and the sternum is stable. - Labs 03/31/18 05:30 03/31/18 05:30 - VTE Documentation of Mechanical Device: Graduated compression elastic hosiery Consult Discharge Plan - Plan Referrals: Pepper Cespedes MD [Primary Care Provider] - (SENT WEB REQUEST ON 04-04-18 @ 1405) Earnest Armstrong MD [Partnered Physician] - 05/03/18 1:00 pm () Shashi Ott [Partnered Physician] - (SENT WEB REQUEST ON 04-04-18 @ [id number])
[2018-04-05] MEDS: Insulin LISPRO 300 UNITS/3 ML VIAL SQ SCH ×4 (08:30→20:52)
[2018-04-05] MEDS: Gabapentin 100 MG CAPSULE PO SCH ×2 (08:37→20:29)
[2018-04-05] MEDS: Cyanocobalamin (B-12) 1,000 MCG TABLET PO SCH (08:37)
[2018-04-05] MEDS: Loratadine 10 MG TABLET PO SCH (08:37)
[2018-04-05] MEDS: Chlorhexidine Rinse 15 ML MOUTHWASH MM SCH ×2 (08:37→20:28)
[2018-04-05] MEDS: Furosemide 40 MG TABLET PO SCH (08:37)
[2018-04-05] MEDS: Aspirin 81 MG TAB.CHEW PO SCH (08:37)
[2018-04-05] MEDS: Bisacodyl 10 MG RECTAL SUPPOSITORY RC SCH (08:38)
[2018-04-05] MEDS: Cholecalciferol (D-3) 1,000 UNIT TABLET PO SCH (08:38)
[2018-04-06] MEDS: *HR* Heparin 5,000 UNIT/ML VIAL SQ SCH ×2 (06:08→16:49)
[2018-04-06] MEDS: *HR* OxyCODONE/APAP 5/325 TABLET PO PRN ×3 (06:08→16:51)
[2018-04-06] MEDS: Insulin LISPRO 300 UNITS/3 ML VIAL SQ SCH (07:54)
[2018-04-06] MEDS: Furosemide 40 MG TABLET PO SCH (07:56)
[2018-04-06] MEDS: Loratadine 10 MG TABLET PO SCH (07:57)
[2018-04-06] MEDS: Cyanocobalamin (B-12) 1,000 MCG TABLET PO SCH (07:57)
[2018-04-06] MEDS: Gabapentin 100 MG CAPSULE PO SCH (07:57)
[2018-04-06] MEDS: Cholecalciferol (D-3) 1,000 UNIT TABLET PO SCH (07:57)
[2018-04-06] MEDS: Bisacodyl 10 MG RECTAL SUPPOSITORY RC SCH (07:59)
[2018-04-06] MEDS: Chlorhexidine Rinse 15 ML MOUTHWASH MM SCH (07:59)
[2018-04-06] MEDS: Aspirin 81 MG TAB.CHEW PO SCH (07:59)
--- NOTE | 2018-04-06 09:16 | Discharge Summary ---
Orders not resulted at time of discharge: Pending orders 03/28/18 12:57 Red Blood Cells [BBK] Routine 04/06/18 00:01 BMP [Basic Metabolic Panel] Routine CBC [Complete Blood Count] [HEME] Routine Date of Encounter: 04/06/18 Time of Encounter: 09:09 - Discharge Diagnosis (1) Coronary artery disease Priority: Primary Status: Acute Qualifiers: Coronary Disease-Associated Artery/Lesion type: [place] artery [place] vs. transplanted heart: [place] heart Associated angina: with unstable angina Qualified Code(s): I25.110 - Atherosclerotic heart disease of [place] coronary artery with unstable angina pectoris - Hospital Course Hospital course: Mr. Hernandez is a 52 year old male - Time Spent with Patient Total time spent providing and/or coordinating discharge services: - Discharge Medications Home Medications: Albuterol Sulfate [Albuterol Inhaler] 2 puff IH BID PRN 03/21/18 [History] Aspirin [Lo-Dose Aspirin EC] 81 mg PO DAILY 03/21/18 [History] Atorvastatin Calcium 80 mg PO HS 03/21/18 [History] Carvedilol [Coreg] 6.25 mg PO BIDWM 03/21/18 [History] Cetirizine HCl [Zyrtec] 10 mg PO DAILY 03/21/18 [History] Diclofenac Sodium [Voltaren] 1 appl TP QID PRN 03/21/18 [History] Enalapril Maleate [Vasotec] 5 mg PO DAILY 03/21/18 [History] Fluticasone Propionate Nasal [Flonase] 50 mcg NS DAILY PRN 03/21/18 [History] Furosemide [Lasix] 40 mg PO DAILY 03/21/18 [History] Gabapentin [Neurontin] 200 mg PO BID 03/21/18 [History] Nitroglycerin [Nitrostat] 0.4 mg SL DAILY PRN 03/21/18 [History] Omeprazole [PriLOSEC] 20 mg PO DAILY PRN 03/21/18 [History] Terazosin HCl 2 mg PO HS 03/21/18 [History] hydrOXYzine HCl [Hydroxyzine HCl] 25 mg PO Q8H PRN 03/21/18 [History] Calcium Carbonate [Calcium] 500 mg PO DAILY 03/29/18 [History] Cholecalciferol (D-3) [Vitamin D] 1,000 unit PO DAILY 03/29/18 [History] Cyanocobalamin (Vitamin B-12) [Vitamin B-12] 1,000 mcg PO DAILY 03/29/18 [ History] Allergies/Adverse Reactions: 3 Allergy/AdvReac Type Severity Reaction Status Date / Time fluoxetine [From Prozac] AdvReac Headache Verified 03/29/18 07:07 Date of admission: 03/29/18 09:23 Primary care physician: Pepper Cespedes Consults: 03/29/18 12:35 Consult to Cardiac Rehabilitation-Phase1 [CONS] Routine Comment: Reason for Consult: Post open heart Call Completed: Yes Consult to Head Batcher [CONS] Routine Reason for SW Consult: open heart 04/01/18 15:33 Consult to Urology [CONS] Routine Consulting Provider: Urology Dania Reason for Consult: Post-op urinary retention Time Notified: 15:30 Call Completed: Yes 04/04/18 09:31 Consult to Physical Therapy [CONS] Routine Comment: Evaluate, develop and implement POC Reason for Consult: Evaluate functional level. Possible inpatient rehab transfer Does patient have active BEDREST order?: No Is patient medically & hemodynamically stable?: No Patient assessed for mobility or mobilized this visit?: No 04/04/18 09:32 Consult to Occupational Therapy [CONS] Routine Comment: Evaluate, develop and implement POC Reason for Consult: Evaluate function level. Possible inpatient rehab transfer. Does patient have active BEDREST order?: No Is patient medically & hemodynamically stable?: No Patient assessed for mobility or mobilized this visit?: No Procedure(s) Performed: 03/29/2018. Coronary artery bypass grafting 3, utilizing the left internal mammary artery. Discharging clinician: Earnest Armstrong Anticipated date of discharge: 04/06/18 Physical Examination Vital Signs, Last 4 Hours Temp Pulse Resp BP Pulse Ox 04/06/18 08:18 87 04/06/18 07:53 16 94 04/06/18 07:14 98.5 F 93 19 133/77 96 - Discharge Instructions Follow Up With: Pepper Cespedes MD [Primary Care Provider] - 04/15/18 1:45 pm () Earnest Armstrong MD [Partnered Physician] - 05/03/18 1:00 pm () Shashi Ott [Partnered Physician] - (SENT WEB REQUEST ON 04-04-18 @ 0301) - VTE Documentation of Mechanical Device: Graduated compression elastic hosiery
--- NOTE | 2018-04-06 09:29 | Discharge Summary ---
Orders not resulted at time of discharge: Pending orders 03/28/18 12:57 Red Blood Cells [BBK] Routine 04/06/18 00:01 BMP [Basic Metabolic Panel] Routine CBC [Complete Blood Count] [HEME] Routine Date of Encounter: 04/06/18 Time of Encounter: 09:27 - Discharge Diagnosis (1) Coronary artery disease Priority: Primary Status: Acute Qualifiers: Coronary Disease-Associated Artery/Lesion type: [place] artery [place] vs. transplanted heart: [place] heart Associated angina: with unstable angina Qualified Code(s): I25.110 - Atherosclerotic heart disease of [place] coronary artery with unstable angina pectoris - Hospital Course Hospital course: Mr. Hernandez is a 52 year old male The patient is a 52-year-old gentleman who presented with coronary artery disease. On 03/29/2018, I took him to the operating room for coronary artery bypass grafting 3, utilizing his left internal mammary artery. On March 31, his chest tubes and Siu catheter were removed and he was transferred to the floor. He did have urinary retention and required reinsertion of the Siu. He was seen by urology on April 02 and they plan to leave the Siu in place and to remove it in the office. Pacing wires were removed on April 05. The patient otherwise did well and was discharged on April 06. At that time, he was afebrile. Lungs were clear to percussion and auscultation. Heart was in a normal sinus rhythm. All incisions were healing well without signs of infection and the sternum is stable. Discharge medications are on the med rec and include Percocet for pain. I did check the [place] automated Rx reporting system. He was given a one-week supply and he was postoperative. Appropriate precautions were given. He was to return to his previous and regular diet. He was to avoid heavy lifting for a total of 3 months after surgery, but to walk as much as possible. He does not drive. He was to follow up and see me in the office in 4 weeks as directed area and he was to follow up with urology as directed. He was to follow-up with cardiology and primary care as directed. He was to call sooner for any difficulties. - Time Spent with Patient Total time spent providing and/or coordinating discharge services: - Discharge Medications Prescriptions: OxyCODONE/APAP 5/325 [Percocet 5/325 MG] 1 each PO Q4HR PRN 7 Days #20 tablet PRN Reason: Severe Pain Home Medications: Albuterol Sulfate [Albuterol Inhaler] 2 puff IH BID PRN 03/21/18 [History] Aspirin [Lo-Dose Aspirin EC] 81 mg PO DAILY 03/21/18 [History] Atorvastatin Calcium 80 mg PO HS 03/21/18 [History] Carvedilol [Coreg] 6.25 mg PO BIDWM 03/21/18 [History] Cetirizine HCl [Zyrtec] 10 mg PO DAILY 03/21/18 [History] Diclofenac Sodium [Voltaren] 1 appl TP QID PRN 03/21/18 [History] Enalapril Maleate [Vasotec] 5 mg PO DAILY 03/21/18 [History] Fluticasone Propionate Nasal [Flonase] 50 mcg NS DAILY PRN 03/21/18 [History] Furosemide [Lasix] 40 mg PO DAILY 03/21/18 [History] Gabapentin [Neurontin] 200 mg PO BID 03/21/18 [History] Nitroglycerin [Nitrostat] 0.4 mg SL DAILY PRN 03/21/18 [History] Omeprazole [PriLOSEC] 20 mg PO DAILY PRN 03/21/18 [History] Terazosin HCl 2 mg PO HS 03/21/18 [History] hydrOXYzine HCl [Hydroxyzine HCl] 25 mg PO Q8H PRN 03/21/18 [History] Calcium Carbonate [Calcium] 500 mg PO DAILY 03/29/18 [History] Cholecalciferol (D-3) [Vitamin D] 1,000 unit PO DAILY 03/29/18 [History] Cyanocobalamin (Vitamin B-12) [Vitamin B-12] 1,000 mcg PO DAILY 03/29/18 [ History] OxyCODONE/APAP 5/325 [Percocet 5/325 MG] 1 each PO Q4HR PRN 7 Days #20 tablet [Rx] Allergies/Adverse Reactions: 3 Allergy/AdvReac Type Severity Reaction Status Date / Time fluoxetine [From Prozac] AdvReac Headache Verified 03/29/18 07:07 Date of admission: 03/29/18 09:23 Primary care physician: Pepper Cespedes Consults: 03/29/18 12:35 Consult to Cardiac Rehabilitation-Phase1 [CONS] Routine Comment: Reason for Consult: Post open heart Call Completed: Yes Consult to Compensation And Benefits Analyst [CONS] Routine Reason for SW Consult: open heart 04/01/18 15:33 Consult to Urology [CONS] Routine Consulting Provider: Jim Najera Reason for Consult: Post-op urinary retention Time Notified: 15:30 Call Completed: Yes 04/04/18 09:31 Consult to Physical Therapy [CONS] Routine Comment: Evaluate, develop and implement POC Reason for Consult: Evaluate functional level. Possible inpatient rehab transfer Does patient have active BEDREST order?: No Is patient medically & hemodynamically stable?: No Patient assessed for mobility or mobilized this visit?: No 04/04/18 09:32 Consult to Occupational Therapy [CONS] Routine Comment: Evaluate, develop and implement POC Reason for Consult: Evaluate function level. Possible inpatient rehab transfer. Does patient have active BEDREST order?: No Is patient medically & hemodynamically stable?: No Patient assessed for mobility or mobilized this visit?: No Procedure(s) Performed: 03/29/2018. Coronary artery bypass grafting 3, utilizing the left internal mammary artery. Discharging clinician: Earnest Armstrong Anticipated date of discharge: 04/06/18 Physical Examination Vital Signs, Last 4 Hours Temp Pulse Resp BP Pulse Ox 04/06/18 08:18 87 04/06/18 07:53 16 94 04/06/18 07:14 98.5 F 93 19 133/77 96 - Patient Status Disposition: Transfer Inpatient Rehab Fac Functional capacity at discharge: independent ambulation Overall status at discharge: patient is progressing back to baseline - Discharge Instructions Follow Up With: Pepper Cespedes MD [Primary Care Provider] - (Patient is going to rehab no PCP appointment needed) Earnest Armstrong MD [Partnered Physician] - 05/03/18 1:00 pm () Shashi Ott [Partnered Physician] - (SENT WEB REQUEST ON 04-04-18 @ [id number]) Open Heart Registry Aspirin Cont/Prescribed at DC: Yes Beta Mono Cont/Prescribed at DC: Yes Statin Cont/Prescribed at DC: Yes OLGA/ARB Cont/Prescribed at DC: Yes - VTE Documentation of Mechanical Device: Graduated compression elastic hosiery
--- NOTE | 2018-04-06 09:39 | Physician Discharge Referral ---
[facility] Referral Info Provider in Charge after Transfer: PCP Institutional Level of Care: Intermediate - Diagnosis (1) Coronary artery disease Priority: Primary Status: Acute - Transfer Medications Prescriptions: OxyCODONE/APAP 5/325 [Percocet 5/325 MG] 1 each PO Q4HR PRN 7 Days #20 tablet PRN Reason: Severe Pain Home Medications: Albuterol Sulfate [Albuterol Inhaler] 2 puff IH BID PRN 03/21/18 [History] Aspirin [Lo-Dose Aspirin EC] 81 mg PO DAILY 03/21/18 [History] Atorvastatin Calcium 80 mg PO HS 03/21/18 [History] Carvedilol [Coreg] 6.25 mg PO BIDWM 03/21/18 [History] Cetirizine HCl [Zyrtec] 10 mg PO DAILY 03/21/18 [History] Diclofenac Sodium [Voltaren] 1 appl TP QID PRN 03/21/18 [History] Enalapril Maleate [Vasotec] 5 mg PO DAILY 03/21/18 [History] Fluticasone Propionate Nasal [Flonase] 50 mcg NS DAILY PRN 03/21/18 [History] Furosemide [Lasix] 40 mg PO DAILY 03/21/18 [History] Gabapentin [Neurontin] 200 mg PO BID 03/21/18 [History] Nitroglycerin [Nitrostat] 0.4 mg SL DAILY PRN 03/21/18 [History] Omeprazole [PriLOSEC] 20 mg PO DAILY PRN 03/21/18 [History] Terazosin HCl 2 mg PO HS 03/21/18 [History] hydrOXYzine HCl [Hydroxyzine HCl] 25 mg PO Q8H PRN 03/21/18 [History] Calcium Carbonate [Calcium] 500 mg PO DAILY 03/29/18 [History] Cholecalciferol (D-3) [Vitamin D] 1,000 unit PO DAILY 03/29/18 [History] Cyanocobalamin (Vitamin B-12) [Vitamin B-12] 1,000 mcg PO DAILY 03/29/18 [ History] OxyCODONE/APAP 5/325 [Percocet 5/325 MG] 1 each PO Q4HR PRN 7 Days #20 tablet [Rx] Allergies/Adverse Reactions: 3 Allergy/AdvReac Type Severity Reaction Status Date / Time fluoxetine [From Prozac] AdvReac Headache Verified 03/29/18 07:07 - Respiratory Orders Smoking Cessation: Smoking cessation has been advised. For more information, call the [place] [employer] Quit Line at 7-918-DCDR-NOW. - Ancillary Orders May use pressure relief devices daily prn, May go on MADHAVI w/family/respon green party w /meds at nurse discretion PRN, May have alcoholic beverages, May consult with Dentist, Ict Project Manager, Toll Line Mechanic PRN - Advance Directives Code Status: Full Code - Mobility Orders Chair, Ambulate - Rehabiliation Orders Rehab Potential: Good Rehab Orders: Sternal Precautions, ROM Exercises, Evaluation for Physical Therapy, Evaluation for Occupational Therapy - Treatments Skin tear care topically daily PRN per policy, May check for fecal impaction rectally daily PRN, Fleet enema rectally every other day PRN cleansing purposes - Diet Orders Regular CERTIFICATION: I certify that the transfer of the above named patient to an Extended Care Facility is necessary for the continuing treatment of the diagnosis listed. The above information is true and accurate reflection of patient's current condition. Confidential - Redisclosure prohibited without a patient's written consent.
[2018-04-06 16:03] VITALS: BP 134/83
== END 2018-04-06 19:15 | DRG 166 ==
LOC: SAMDAY 06:14 → ICNU 09:23 → 2NNU 04-02 15:57
PROVIDERS: ADMIT Thoracic Surgery (Cardiothoracic Vascular Surgery); ATTEND Thoracic Surgery (Cardiothoracic Vascular Surgery)

== ENCOUNTER 2021-06-09 09:20 | Observation (INO) ==
[2021-06-09 10:17] LABS: Basophils % 0.5 %; Eosinophils # 0.1 K/mcL (0.0-0.6); Eosinophils % 1.1 %; Hematocrit 45.2 % (37.5-50.1); Hemoglobin 15.7 g/dL (12.9-16.9); Immature Granulocytes % 0.2 % (0-4); Lymphocytes % 11.9 %; Mean Corpuscular HGB Conc 34.7 g/dL (31.6-35.5); Mean Corpuscular Volume 86.4 fL (83.0-100.0); Mean Platelet Volume 9.1 fL (9.4-12.4); Monocytes # 0.5 K/mcL (0.0-1.3); Monocytes % 6.6 %; Neutrophils # 6.4 K/mcL (1.6-8.9); Platelet Count 169 K/mcL (140-400); Red Blood Count 5.23 M/mcL (4.19-5.50); Red Cell Distribution Width 12.6 % (11.5-14.5); Segmented Neutrophils % 79.7 %
[2021-06-09 10:40] LABS: BUN/Creatinine Ratio 18 (6-26); Blood Urea Nitrogen 17 mg/dL (6-20); Calcium 9.7 mg/dL (8.6-10.3); Carbon Dioxide 28 mEq/L (23-29); Chloride 106 mEq/L (98-107); Glucose 88 mg/dL (70-105); Osmolality,Calculated 289 (280-300); Potassium 4.3 mEq/L (3.5-5.1); Sodium 139 mEq/L (136-145); Troponin I < 0.03 ng/mL (< 0.04); eGFR For African Americans > 60 (> 60); eGFR For Non-African Americans > 60 (> 60)
[2021-06-09] MEDS ORDERED: Melatonin 3 MG TABLET PO PRN (11:55)
[2021-06-09] MEDS ORDERED: Ondansetron ODT 4 MG TAB.RAPDIS SL PRN (11:55)
[2021-06-09] MEDS ORDERED: MOM Conc 10 ML UD.LIQ PO PRN (11:55)
[2021-06-09] MEDS ORDERED: Naloxone 0.4 MG/ML INJ IVP PRN (11:55)
[2021-06-09] MEDS ORDERED: Mag Hydrox/Al Hydrox/Simeth 30 ML UDC PO PRN (11:55)
[2021-06-09] MEDS ORDERED: Perflutren Lipid Microsphere 1.3 ML in 0.9 % Sodium Chloride 8.7 ML IVP PRN (11:58)
[2021-06-09] MEDS: Aspirin Enteric Coated 81 MG Tablet PO SCH (14:29)
[2021-06-09] MEDS: Gabapentin 100 MG CAPSULE PO SCH ×2 (14:29→21:04)
[2021-06-09] MEDS ORDERED: Acetaminophen 325 MG TABLET PO PRN (17:01)
[2021-06-09] MEDS: carvediloL 6.25 MG TABLET PO SCH (17:26)
[2021-06-10 05:13] LABS: Hematocrit 48.1 % (37.5-50.1); Hemoglobin 16.6 g/dL (12.9-16.9); Mean Corpuscular HGB Conc 34.5 g/dL (31.6-35.5); Mean Corpuscular Hemoglobin 29.1 pg (28.0-33.3); Mean Corpuscular Volume 84.4 fL (83.0-100.0); Mean Platelet Volume 9.3 fL (9.4-12.4); Platelet Count 166 K/mcL (140-400); Red Cell Distribution Width 12.4 % (11.5-14.5); White Blood Count 8.8 K/mcL (4.3-11.1)
[2021-06-10 05:38] LABS: Alanine Aminotransferase 29 Units/L (7-52); Albumin 4.5 g/dL (3.5-5.7); Albumin/Globulin Ratio 1.4 (1.1-2.2); Alkaline Phosphatase 95 Units/L (34-104); Aspartate Amino Transferase 24 Units/L (13-39); BUN/Creatinine Ratio 20 (6-26); Bilirubin,Total 1.2 mg/dL (0.3-1.0); Blood Urea Nitrogen 16 mg/dL (6-20); Calcium 9.6 mg/dL (8.6-10.3); Carbon Dioxide 20 mEq/L (23-29); Chloride 106 mEq/L (98-107); Globulin 3.3 g/dL (2.4-3.5); Glucose 102 mg/dL (70-105); Osmolality,Calculated 285 (280-300); Sodium 137 mEq/L (136-145); Total Protein 7.8 g/dL (6.4-8.9); eGFR For African Americans > 60 (> 60); eGFR For Non-African Americans > 60 (> 60)
[2021-06-10] MEDS ORDERED: *HR* Enoxaparin 40 MG/0.4 ML SYRINGE SQ SCH (06:00)
[2021-06-10] MEDS ORDERED: Regadenoson 0.4 MG/5 ML SYRINGE IVP ONE (06:14)
[2021-06-10] MEDS ORDERED: Gabapentin 100 MG CAPSULE PO SCH (09:00)
[2021-06-10 10:33] VITALS: PULSE 106; TEMP 97.8; O2SAT 97
[2021-06-10] MEDS: carvediloL 6.25 MG TABLET PO SCH (10:39)
[2021-06-10] MEDS: Aspirin Enteric Coated 81 MG Tablet PO SCH (10:39)
[2021-06-10 12:00] VITALS: BP 141/92
[2021-06-10] MEDS ORDERED: lisinopriL 10 MG TABLET PO SCH (12:00)
== END 2021-06-10 13:29 | disposition home or self-care (01) ==
LOC: EMEROOARM 09:20 → CDU 09:20 → SUATTDRO 11:52 → CDU 13:54
PROVIDERS: ADMIT Internal Medicine; ATTEND Registered Nurse